=== PATIENT | female | born 1955 | race Caucasian/White ===

== ENCOUNTER 2019-04-02 07:36 | Emergency (ER) | payer BC, OTHER ==
[~2019-04-02] VITALS: Ht 157.5 cm; Wt 68.0 kg
[~2019-04-02 07:36] MED LIST: BYSTOLIC10 MG PO; ISOSORBIDE MONO30 MG PO; LIPITOR20 MG; LOSARTAN PO; METFORMIN HCL500 MG PO; TRESIBA SC; TRIAMTERENE-HCTZ1 EA
--- OUTSIDE RECORDS SUMMARY | 2019-04-02 07:39 | XMS REPORT ---
Author Author [facility] Address Unknown Phone Unavailable Care Team Providers Care Dev Manager Name Role Phone Angela MENENDEZ Unavailable Unavailable Problems This patient has no known problems. Allergies, Adverse Reactions, Alerts This patient has no known allergies or adverse reactions. Medications This patient has no known medications. Results Test Description Test Time Test Comments Text Results Atomic Results Result Comments RAD, SHOULDER, COMPLETE (MIN 2 VIEWS), LEFT 2018-10-15 14:46:00 Reason for exam:- >traumaShould this be performed at the bedside?->No FINAL REPORT EXAM: AP radiographs of the left shoulder in internal and external rotation and a transscapular Y view HISTORY PROVIDED: Trauma COMPARISON: None available IMPRESSION:No evidence of acute fracture or dislocation. The soft tissues are unremarkable. The visualized left lung field is grossly normal. Signed: Milagro Rm MDReport Verified Date/Time: 10/15/2018 14:46:00 Reading Location: [facility] Mammo Reading Room , SPINE, CERVICAL, WO CONTRAST 2018-10-15 14:24:00 Reason for exam:->traumaWhat is the patient's sedation requirement?->No Sedation FINAL REPORT CT cervical spine without contrast 10/15/2018 2:23 PM CLINICAL HISTORY: traumaneck pain with twisting COMPARISON: None available TECHNIQUE: Axial noncontrast CT images of the cervical spine were obtained. Axially acquired data were reformatted in coronal and sagittal planes for further analysis. This examination was performed according to our departmental dose optimization program, which includes automated exposure control, adjustment of the mA and/or kV according to patient size, and/or use of iterated reconstruction technique. FINDINGS: There is no fracture or traumatic malalignment. There are no osteolytic or osteoblastic lesions. There is congenital spinal stenosis. There are superimposed degenerative changes, without high-grade central canal stenosis. The visualized soft tissue is without worrisome finding. IMPRESSION: No cervical spine fracture or traumatic malalignment Signed: Luis Alberto Joiner Verified Date/Time: 10/15/2018 14:24:02 Reading Location: [facility] Radiology Reading Room T 2 VIEWS [place] [address] Patient Name: JACKSON LI MR #: [id number] : 1955 Age/Sex: 61/F Req #: [id number] [facility] Physician: Ordered by: POLLY MENENDEZ MD Report #: [id number] Location: ER Room/Bed: Procedure: [id number] DX/CHEST 2 VIEWS Exam Date: Exam Time: REPORT STATUS: Signed CHEST 2 VIEWS, Technique: CHEST 2 VIEWS Comparison: None Clinical history: Hypertension DISCUSSION: Unremarkable appearance of the heart, mediastinum, lungs and pleural spaces. IMPRESSION: No acute abnormality. Signed by: Dr Martha Michele MD on 06/20/2017 2:15 AM Dictated By: MARTHA MICHELE MD 4 Transcribed By: MANE on 06/20/17214 COPY TO: POLLY MENENDEZ MD
--- OUTSIDE RECORDS SUMMARY | 2019-04-02 07:39 | XMS REPORT | Clinical Summary ---
Author Author [facility] Address Unknown Phone Unavailable Care Team Providers Care Casino Beverage Server Name Role Phone Sharpless PCP Allergies Comments Active Allergy Reactions Severity Noted Date Cephalexin Hives High 09/01/2015 Medications End Date Status Medication Sig Dispensed Refills Start Date Active triamterene-hydrochloroth Take 1 0 iazide (DYAZIDE) 37.5-25 capsule by mg per capsule mouth every morning. Active nebivolol (BYSTOLIC) 5 MG Take 1 tablet 30 tablet 0 tablet (5 mg total) 9 by mouth daily. 10/25/2018 acetaminophen-codeine Take 1 tablet 20 tablet 0 (TYLENOL #3) 300-30 mg by mouth 9 per tablet every 4 (four) hours as needed for up to 10 days. Max Daily Amount: 6 tablets Active Problems Not on file Encounters Care Team Description Date Type Specialty Tomy Hoyt MD Cervical radiculopathy (Primary Dx); Renal cell carcinoma, unspecified laterality (HCC); Essential hypertension 10/15/2018 Emergency Emergency Medicine 10/15/2018 Orders Only General Internal Medicine 10/15/2018 Travel after 04/01/2018 Social History Date Tobacco Use Types Packs/Day Years Used Current Some Day Smoker Cigarettes Tobacco Cessation: Ready to Quit: No Alcohol Use Drinks/Week oz/Week Comments No No EtOH since Sex Assigned at Date Recorded Not on file Industry Job Start Date Occupation Not on file Not on file Not on file Travel End Travel History Travel Start No recent travel history available. Last Filed Vital Signs Time Taken Vital Sign Reading 10/15/2018 3:10 PM [employer] Blood Pressure 140/81 10/15/2018 3:10 PM [employer] Pulse 71 10/15/2018 12:20 PM [employer] Temperature 36.2 C (97.2 F) 10/15/2018 3:10 PM [employer] Respiratory Rate 16 10/15/2018 3:10 PM [employer] Oxygen Saturation 97% - Inhaled Oxygen - Concentration 10/15/2018 12:20 PM [employer] Weight 73.5 kg (162 lb) 10/15/2018 12:20 PM [employer] Height 157.5 cm (5' 2") 10/15/2018 12:20 PM [employer] Body Mass Index 29.63 Plan of Treatment Not on file Procedures Comments Procedure Name Priority Date/Time Associated Diagnosis REPORT OF PROCEDURE - 12/06/2018 ENDOSCOPY SCAN 11:12 AM [employer] ECG 12-LEAD Routine 10/15/2018 3:02 PM [employer] Procedure Note - Interface, External Ris In - 10/15/2018 11:17 PM [employer] Ventricula r Rate 70 BPM Atrial Rate 70 BPM P-R Interval 170 ms QRS Duration 84 ms Q-T Interval 420 ms QTC Calculatio n(Bazett) 453 ms P Safford 41 degrees R Safford -18 degrees T Safford 10 degrees Normal sinus rhythm Normal ECG No previous ECGs available ECG 12-LEAD STAT 10/15/2018 3:02 PM [employer] XR SHOULDER LEFT COMPLETE STAT 10/15/2018 MIN 2 VIEWS 2:[address] SPINE CERVICAL WITHOUT STAT 10/15/2018 IV CONTRAST 2:11 PM [employer] after 04/01/2018 Results * EKG-SCANNED (12/06/2018 11:12 AM [employer]) Narrative Performed At * ECG 12 lead (10/15/2018 3:02 PM [employer]) Specimen Narrative Performed At Ventricular Rate 70 BPM GE MUSE Atrial Rate 70 BPM P-R Interval 170 ms QRS Duration 84 ms Q-T Interval 420 ms QTC Calculation(Bazett) 453 ms P Safford 41 degrees R Safford -18 degrees T Safford 10 degrees Normal sinus rhythm Normal ECG No previous ECGs available Confirmed by Tavares MICHELLE MICHAEL ([id number]) on 10/17/2018 7:34:29 AM Procedure Note Interface, External Ris In - 10/17/2018 7:34 AM [employer] Ventricular Rate 70 BPM Atrial Rate 70 BPM P-R Interval 170 ms QRS Duration 84 ms Q-T Interval 420 ms QTC Calculation(Bazett) 453 ms P Safford 41 degrees R Safford -18 degrees T Safford 10 degrees Normal sinus rhythm Normal ECG No previous ECGs available Confirmed by Tavares MICHELLE MICHAEL ([id number]) on 10/17/2018 7:34:29 AM Performing Organization Address [facility] Phone Number [email or web address] MUSE * XR shoulder complete 2 views min left (10/15/2018 2:21 PM [employer]) Specimen Narrative Performed At FINAL REPORT [place] EXAM: AP radiographs of the left shoulder in internal and external rotation and a transscapular Y view HISTORY PROVIDED: Trauma COMPARISON: None available IMPRESSION: No evidence of acute fracture or dislocation. The soft tissues are unremarkable. The visualized left lung field is grossly normal. Signed: Milagro Rm MD Report Verified Date/Time:10/15/2018 14:46:00 Reading Location: [facility] Reading Room Procedure Note Interface, External Ris In - 10/15/2018 2:48 PM [employer] FINAL REPORT EXAM: AP radiographs of the left shoulder in internal and external rotation and a transscapular Y view HISTORY PROVIDED: Trauma COMPARISON: None available IMPRESSION: No evidence of acute fracture or dislocation. The soft tissues are unremarkable. The visualized left lung field is grossly normal. Signed: Milagro Rm MD Report Verified Date/Time: 10/15/2018 14:46:00 Reading Location: [facility] Reading Room Performing Organization Address [facility] Phone Number GE RIS * CT spine cervical without IV contrast (10/15/2018 2:11 PM [employer]) Specimen Narrative Performed At FINAL REPORT [place] CT cervical spine without contrast 10/15/2018 2:23 PM CLINICAL HISTORY: trauma neck pain with twisting COMPARISON: None available TECHNIQUE: [...] or traumatic malalignment Signed: Luis Alberto Joiner MD Report Verified Date/Time:10/15/2018 14:24:02 Reading Location: [facility] Radiology Reading Room Procedure Note Interface, External Ris In - 10/15/2018 2:29 PM [employer] FINAL REPORT CT cervical spine without contrast 10/15/2018 2:23 PM CLINICAL HISTORY: trauma neck pain with twisting COMPARISON: None available TECHNIQUE: [...] or traumatic malalignment Signed: Luis Alberto Joiner MD Report Verified Date/Time: 10/15/2018 14:24:02 Reading Location: [facility] Radiology Reading Room Performing Organization Address City/State/Zipcode Phone Number GE RIS after 04/01/2018 Insurance Payer Benefit Subscriber ID Type Phone Address Plan / Group [employer] - [employer] PPO xxxxxxxxxx PPO OPEN [employer] BLUE CROSS/BLUE SHIELD BCBS PPO xxxxxxxxxxxxxxx PPO [phone] [address] [place] [address] CHOICE
[2019-04-02] MEDS ORDERED: HYDROMORPHONE 1MG/1ML INJ IV STA (10:35)
[2019-04-02] MEDS ORDERED: ONDANSETRON HCL 4 MG ORAL DISINTEGRATING TAB ONE (10:44)
[2019-04-02] MEDS ORDERED: ONDANSETRON HCL 4 MG ORAL DISINTEGRATING TAB PO ONE ×2 (10:45)
[2019-04-02] MEDS ORDERED: HYDROMORPHONE 2MG/ML 2 MG/ML ML IM ONE (10:45)
[2019-04-02] MEDS ORDERED: HYDROMORPHONE 2MG/ML 2 MG/ML ML ONE (10:45)
== END 2019-04-02 10:54 | disposition home or self-care (01) ==
LOC: ER 07:36
DX: M54.16 Radiculopathy, lumbar region (principal); I10 Essential (primary) hypertension; E11.9 Type 2 diabetes mellitus without complications
CPT/HCPCS: 99281; J1170; Q0162